=== PATIENT | female | born 1960 | race Caucasian/White ===

== ENCOUNTER 2017-02-10 11:37 | Emergency (ER) | payer MEDICAID ==
[~2017-02-10] VITALS: Ht 157.5 cm; Wt 67.0 kg
[~2017-02-10 11:37] MED LIST: GABA-531 PO; TRAM50TA3 PO; VIST25 PO
[2017-02-10 11:41] VITALS: BP 119/73
[2017-02-10] MEDS ORDERED: KETOROLAC 60MG/2ML VIAL IM STA (15:10)
== END 2017-02-10 17:25 | disposition home or self-care (01) ==
LOC: ER 11:37
DX: S16.1XXA Strain of muscle, fascia and tendon at neck level, initial encounter (principal); S20.211A Contusion of right front wall of thorax, initial encounter; M54.2 Cervicalgia; M54.9 Dorsalgia, unspecified; J44.9 Chronic obstructive pulmonary disease, unspecified; F17.200 Nicotine dependence, unspecified, uncomplicated; W10.8XXA Fall (on) (from) other stairs and steps, initial encounter; Y93.89 Activity, other specified; Y92.89 Other specified places as the place of occurrence of the external cause; Y99.8 Other external cause status
CPT/HCPCS: 71101; 72070; 72100; 72125; 96372; 99284; J1885